=== PATIENT | female | born 1945 | race Caucasian/White ===

== ENCOUNTER 2023-07-11 10:20 | Outpatient (OUT) | payer MEDICARE, SELFPAY ==
--- NOTE | 2023-07-11 10:50 | XR_ITS ---
The [place] [id number] Patient Name: BOO BERGER MRN: [id number] date: 1945 Sex: F Assigned Patient Location: RAD Current Patient Location: [facility] Accession/Order Number: [id number] Exam Date: 07/11/2023 10:40 Report Date: 07/11/2023 16:27 At the request of: SATYA LOPEZ Procedure: XR hip LT min 2V PROCEDURE: XR hip LT min 2V HISTORY: Left hip pain M25.552 , chronic COMPARISON: None. FINDINGS: BONES:No fracture, acute abnormality, or significant arthropathy. SOFT TISSUES:No visible soft tissue swelling. EFFUSION:None visible. OTHER: Negative. XR/XR hip LT min 2V IMPRESSION: 1. No acute bone abnormality or significant degenerative joint disease. Electronically authenticated by: DEBRA MCCANN Date: 07/11/2023 16:27
--- NOTE | 2023-07-11 10:50 | XR_ITS ---
The [place] [id number] Patient Name: BOO BERGER MRN: [id number] date: 1945 Sex: F Assigned Patient Location: [facility] Current Patient Location: [facility] Accession/Order Number: [id number] Exam Date: 07/11/2023 10:40 Report Date: 07/11/2023 16:28 At the request of: SATYA LOPEZ Procedure: XR lumbar spine min 4V EXAMINATION: XR lumbar spine min 4V HISTORY: Low back pain M54.50 , chronic COMPARISON: No relevant comparison available. FINDINGS: BONES: Mild grade 1 retrolisthesis of L1 on 2 and L2 on 3. Mild grade 1 anterolisthesis of L4 on 5. No fracture or bone lesion. Moderate degenerative facet arthropathy L4-5, L5-S1. DISC SPACES: Marked disc space narrowing L1-2, L4-5, L5-S1. Mild narrowing L2-3. PARASPINOUS: Negative. No paraspinous abnormality is seen. OTHER: Negative. XR/XR lumbar spine min 4V IMPRESSION: 1. 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 Electronically authenticated by: DEBRA MCCANN Date: 07/11/2023 16:28
== END 2023-07-11 10:21 | disposition home or self-care (01) ==
LOC: RAD 10:24
PROVIDERS: PCP Family Medicine; Visit Provider Nurse Practitioner
DX: M25.552 Pain in left hip (principal); M54.42 Lumbago with sciatica, left side
CPT/HCPCS: 72110; 73502

== ENCOUNTER 2024-11-21 07:42 | Outpatient (OUT) | payer MEDICARE, SELFPAY ==
--- NOTE | 2024-11-21 08:00 | CA_ITS ---
Patient Name: BOO BERGER MR#: [id number] : 1945 Exam Date: 11/21/2024 Ordering Doctor: NON-STAFF PHYSICIAN ECHOCARDIOGRAM REPORT PROCEDURE: CA ECHO DOPPLER COMPLETE INDICATIONS: Hiatal hernia pre-operative exam COMPARISON: None. DESCRIPTION: COMPLETE ECHOCARDIOGRAM Real-time transthoracic echocardiography with 2D, M-mode, spectral and color flow Doppler performed. QUALITY: Technical quality was good. LEFT VENTRICLE: Normal chamber size. Normal left ventricular wall thickness. Normal systolic function. LV EF: Normal left ventricular ejection fraction, (55%). DIASTOLIC: Normal diastolic function. ATRIAL SEPTUM: Visually appears intact. LEFT ATRIUM: Normal chamber size. RIGHT ATRIUM: Normal chamber size. RIGHT VENTRICLE: Normal chamber size. Normal systolic function. TRICUSPID VALVE: Normal mobility and thickness. No stenosis with trivial regurgitation. Unable to assess right sided pressures due to lack of measurable tricuspid regurgitation. MITRAL VALVE: Normal mobility and thickness. No evidence of mitral valve stenosis. There is no mitral annular calcification. No mitral regurgitation. AORTIC VALVE: Normal trileaflet appearance. Mildly calcified aortic valve. Normal leaflet mobility. Doppler velocity suggest no aortic valve stenosis. Mild aortic regurgitation. AORTIC ROOT: Normal diameter and appearance. Ascending aorta is normal in size. PULMONIC VALVE: Normal thickness and mobility. No stenosis. Trivial regurgitation. PERICARDIUM: No evidence of pericardial effusion. IVC: Collapses with inspirations. PLEURA: CONCLUSION: 1. Normal left ventricular size and systolic function. LVEF is estimated at 55%. 2. Normal right ventricular size and systolic function. 3. Normal diastolic function. 4. Mildly calcified aortic valve with mild regurgitation and no stenosis. 5. Unable to assess right-sided pressures due to lack of measurable tricuspid regurgitation. Adult Echocardiography Procedure Report Left Ventricle LVEDD (3.7 - 5.6 cm): 3.97 cm LVESD (2.2 - 4.0 cm): 2.88 cm LVIVS thickness (0.6 - 1.2 cm): 0.75 cm LVPW thickness (0.5 - 1.0 cm): 0.74 cm e': 0.10 m/s E - e': 6.74 LVOT Max Gradient: 1.48 mm[Hg] LVOT Area (cm2): 0.61 m/s Peak Velocity (LVOT): 0.61 m/s Mean Velocity (LVOT): 0.41 m/s LVOT Diameter 1.87 cm Left Atrium LA Volume Index (2D A2C): 23.23 ml/m2 Left Atrium Systolic Dimension: 2.51 cm Mitral Valve MV E to A Ratio: 1.03 Mitral Valve A-Wave Peak Velocity: 0.68 m/s Mitral Valve E-Wave Peak Velocity: 0.69 m/s Right Ventricle Aorta AO Root Diam: 2.70 cm Ascending Ao Diam: 2.56 cm Aortic Valve AoV Area (Peak [place]): 1.08 cm2, 1.08 cm2 AoV Area (VTI): 1.09 cm2, 1.09 cm2 Deceleration [place]: 2.59 m/s2 Pressure Half-Time: 491.25 ms Peak Velocity(Antegrade Flow): 1.55 m/s Peak Gradient(Antegrade Flow): 9.66 mm[Hg] Mean Velocity(Antegrade Flow): 1.13 m/s Mean Gradient(Antegrade Flow): 5.69 mm[Hg] Velocity Time Integral: 37.18 cm Tricuspid Valve Peak Velocity (Regurgitant Flow): Pulmonic Valve Mean Gradient: 1.09 mm[Hg] Mean Velocity: 0.49 m/s Peak Velocity: 0.67 m/s, 0.65 m/s Peak Gradient: 1.67 mm[Hg], 1.80 mm[Hg] Right Atrium Right Atrium Systolic Pressure: 36.50 ml, 36.50 ml Dictated by: Rickie Erwin M.D. on 11/22/2024 at 08:21 Approved by: Rikcie Erwin M.D. on 11/22/2024 at 08:28
== END 2024-11-21 07:43 | disposition home or self-care (01) ==
LOC: CARD 07:43
PROVIDERS: PCP Family Medicine
DX: Z01.810 Encounter for preprocedural cardiovascular examination (principal); K44.9 Diaphragmatic hernia without obstruction or gangrene
CPT/HCPCS: 93306

== ENCOUNTER 2025-07-01 16:15 | Outpatient (OUT) | payer MEDICARE, SELFPAY ==
--- NOTE | 2025-07-01 16:30 | XR_ITS ---
The [address] [id number] Patient Name: BOO BERGER MRN: [id number] date: 1945 Sex: F Assigned Patient Location: [facility] Current Patient Location: [facility] Accession/Order Number: [id number] Exam Date: 07/01/2025 23:55 Report Date: 07/01/2025 23:56 At the request of: YIFAN CHUN NP Procedure: XR ankle LT min 3V 3 views of the left ankle INDICATION: Ankle pain COMPARISON: None FINDINGS: Mild to moderate soft tissue swelling. Small joint effusion identified tibiotalar joint. No evidence of acute fracture or dislocation. XR/XR ankle LT min 3V IMPRESSION: Soft tissue swelling and joint effusion. Negative acute fracture or dislocation Impression dictated by: Buzz Ortiz M.D. 07/01/2025 11:56 PM Dictation Location: [place] [address] Electronically authenticated by: [id number] Y Date: 07/01/2025 23:56
== END 2025-07-01 16:16 | disposition home or self-care (01) ==
PROVIDERS: PCP Nurse Practitioner; Visit Provider Nurse Practitioner Family
DX: M25.572 Pain in left ankle and joints of left foot (principal); M25.472 Effusion, left ankle
CPT/HCPCS: 73610